=== PATIENT | female | born 1945 | race Caucasian/White ===

== ENCOUNTER 2016-03-16 20:43 | Emergency (ER) | payer OTHER ==
--- NOTE | 2016-03-16 21:58 | ED CLINICAL REPORT ---
Clinical Report - Physicians/Mid Levels [facility] [address] [place] [address] 03/16/2016 20:44 Patient: ESSENCE PATEL Time Seen: 22:09 Mar 16 2016. Arrived- By private vehicle. Historian- patient. HISTORY OF PRESENT ILLNESS Chief Complaint: DYSURIA. This started last night and still present. The symptoms are described as mild. No vaginal discharge. She has had pain with urination and urgency of urination. The patient has had urinary frequency. Not sexually active. Does not use control measures. (Has been attempting to drink water to improve her symptoms, however continues to have urgency and frequency. No back pain no fevers. No pelvic pain. No diarrhea or emesis. History of similar in the past. No recent antibiotics or foreign travel.). REVIEW OF SYSTEMS No nausea, headache, fever or difficulty breathing. All systems otherwise negative, except as recorded above. SOCIAL HISTORY Never smoker. Alcohol use. No drug use. ADDITIONAL NOTES The nursing notes have been reviewed. PHYSICAL EXAM Vital Signs: 03/16/2016 21:29 BP: 164/84. HR: 84. RR: 16. O2 saturation: 98%. Temp: 98.4 F. Appearance: Alert. HEENT: Normal external inspection. Neck: Neck supple. CVS: Heart sounds normal. Respiratory: No respiratory distress. Breath sounds normal. Abdomen: Soft and nontender. No mass. No abdominal tenderness or mass present. Back: Normal external inspection. No CVA tenderness. Skin: Skin warm. Normal skin color. LABS, X-RAYS, AND EKG Laboratory Tests: UA-Culture if indicated: (NINOSKA: 03/16/2016 21:20) ( MsgRcvd 03/16/2016 22:00) Final results Test Result Flag Units (Reference) URINE COLOR YELLOW URINE APPEARANCE CLEAR URINE GLUCOSE NEGATIVE (NEGATIVE) URINE BILIRUBIN NEGATIVE (NEGATIVE) URINE KETONE NEGATIVE (NEGATIVE) URINE SPECIFIC GRAVITY <= 1.005 L (1.010-1.030) URINE PH 6.0 (5.0-8.0) URINE PROTEIN NEGATIVE (NEGATIVE) URINE UROBILINOGEN 0.2 EU/dL (0.2-1.0) URINE NITRITE NEGATIVE (NEGATIVE) URINE BLOOD 3+ (NEGATIVE) URINE LEUK ESTERASE POSITIVE (NEGATIVE) URINE RBC NONE SEEN rbc/hpf (0-1) URINE WBC 50-75 wbc/hpf (0-1) URINE EPITHELIAL CELLS 0-1 EPI/hpf (0-5) URINE BACTERIA FEW (1+) (NONE SEEN) URINE COMMENT CULTURE INDICATED URINE CULTURES ARE SET-UP BASED ON THE FOLLOWING CRITERIA:POSITIVE NITRITEPOSITIVE LEUKOCYTE ESTERASEGREATER THAN 10 WHITE BLOOD CELLSMODERATE (2+) OR GREATER BACTERIA . PROGRESS AND PROCEDURES Course of Care: patient here in the ER, with new onset of symptoms, isolated to the sinusitis, with no signs of pile, afebrile, no CVA tenderness abdomen soft nontender. Patient with no comorbidities, rather healthy for her age. Patient is stable. Physical exam findings are improved. Symptoms better. Patient/family counseled. Disposition: Discharged. CLINICAL IMPRESSION Acute urinary tract infection with cystitis. INSTRUCTIONS Drink plenty of fluids. Prescription Medications: Pyridium 100 mg: take 1 orally every 8 hours. Dispense ten (10). No refill. Substitution is permissible. Macrobid 100 mg: Take 1 capsule orally every 12 hours for 7 days. No refills. Substitution is permissible. Follow-up: Follow up with your doctor in three days. (Electronically signed by Alise Mera P.A.-C 03/16/2016 22:11)
--- NOTE | 2016-03-16 21:58 | ED NURSING NOTES ---
Clinical Report - Nurses [facility] [address] [place] [address] 03/16/2016 20:44 Patient: ESSENCE PATEL TRIAGE 21:29 03/16/16. BP: 164/84. HR: 84. RR: 16. O2 saturation: 98%. Temp: 98.4 F. Pain level now 04/08. --21:30 Alfonzo Mcmanus R.N. Triage time 21:30 Mar 16 2016. Chief Complaint: PAINFUL URINATION, URGENCY and FREQUENCY. --21:32 Sandy Horan Acuity: LEVEL 3. SEPSIS SCREEN: Sepsis Screen: negative. Infection suspected/documented. MARY COMA SCORE: Mary Coma Scale: 15- eyes open spontaneously (4); best verbal response- oriented x 4 (5); best motor response- obeys commands (6). --21:33 Sandy Horan. Weight: 61.2 kg stated. Height/Length: 67 inches Per Patient. BMI: 21.2. --21:31 Sandy Horan. Medications None. --21:31 Sandy oHran. Allergies Penicillin. --21:31 Sandy Horan. Medication/allergy information source: the patient. --21:33 Sandy Horan. History Arrived by private vehicle. Historian: patient. Unaccompanied. This started yesterday. ( Patient reports that she has had UTI in the past and she had some pain and urgency yesterday. She states she hydrated a lot yesterday and thought that may help but has continued to have pain today.). --21:32 Sandy Horan PAST MEDICAL HX: Immunizations: up-to-date. The patient is post-menopausal. SOCIAL HX: Never smoker. Occasional alcohol use. No drug use. No infectious disease exposure. ABUSE ASSESSMENT: No report of abuse. FALL RISK ASSESSMENT: Fall risk assessment completed. No fall risk identified. NUTRITIONAL RISK ASSESSMENT: The nutritional risk assessment revealed no deficiencies. FUNCTIONAL ASSESSMENT: Functional assessment: no impairments noted. LEARNING NEEDS ASSESSMENT: The learning needs assessment revealed no barriers. SKIN INTEGRITY ASSESSMENT: Skin integrity risk assessment completed. No skin integrity risk identified. --21:33 Sandy Horan The patient has had flank pain. --21:33 Sandy Horan. PROBLEMS: no known problems. ADDITIONAL SURGERIES: no known surgeries. Interventions ID band on patient. To treatment room. --21:33 Sandy Horan. PHYSICAL ASSESSMENT Ambulatory to room. Patient gowned. GENERAL / NEURO / PSYCH: Alert. Oriented X 4. Appears in no acute distress. HEENT: Mucous membranes are pink. RESPIRATORY: Respirations not labored. CVS: Normal heart rate and rhythm. GI / : Abdomen soft and nontender. SKIN: Skin is warm and dry. --21:33 Sandy Horan. NURSING PROGRESS NOTES 21:34 03/16/16. Patient gowned. Reassurance given to the patient. Two patient identifiers checked. Call light placed in reach. Side rails up x 1. Bed placed in lowest position. Brakes of bed on. Patient ready for evaluation- chart flagged. --21:34 Sandy Horan Patient ready for evaluation- chart flagged and ED physician notified. --21:34 Aung Sandy Patient ID band checked for patient name and birthdate: patient confirmed. Instructions provided to collect clean catch urine and patient verbalized understanding. Clean catch urine collected with return of yellow-colored clear urine; sample sent to lab for urinalysis and culture. Specimen labeled in the presence of the patient. --21:36 Sandy Horan 22:03/16/2016 Macrobid PO Capsules 100 mg given. Allergies verified and confirmed 5 rights. --22:01 Sandy Horan 22:03/16/2016 Pyridium (Phenazopyridine HCl) PO Tablets 100 mg given. Allergies verified and confirmed 5 rights. --22:01 Sandy Horan. DISPOSITION / DISCHARGE Condition at departure: stable. No learning barriers present. Discharge instructions provided and reviewed with the patient. Reviewed medication(s) side effects, precautions, dosing and course information. Prescription(s) given to the patient. Patient verbalized understanding. Written instructions provided in Faroese. The patient was discharged home and accompanied by spouse. She left the Emergency Department ambulatory and via private vehicle. Spouse driving. --22:10 Schulte, Marline, R.N. 22:09 03/16/16. BP: deferred. HR: deferred. RR: 15 (regular, unlabored and normal). O2 saturation: deferred. Temp: deferred. Lott-Ly pain scale: 04/08. --22:10 Marline Schulte R.N. Locked/Released at 03/16/2016 22:10 by Marline Schulte R.N.
--- NOTE | 2016-03-16 21:58 | ED ORDER SUMMARY ---
..... Patient: ESSENCE PATEL OrderSheet [facility] VisitID: [id number] [place] [address] 71y, F Registration Date/Time: 03/16/2016 ORDER SHEET Weight: 61.2 kg (stated) Allergies: Penicillin GENERAL ORDERS: UA-Culture if indicated Urgent (21:35 03/16/2016 HSoule per protocol) (Ack 21:36 NHouse ER Tech1) (22:01 HSoule) MEDICATION ORDERS: Macrobid PO 100 mg (NOW) (21:57 03/16/2016 EKoroleva P.A.-C) (22:01 HSoule) Pyridium PO 100 mg (NOW) (21:58 03/16/2016 EKoroleva P.A.-C) (22:01 HSoule) IV FLUIDS: ORDER SHEET NOTES: [Electronically signed by Marline Schulte R.N. (22:10 03/16/2016)] [Electronically signed by Alise Mera P.A.-C (22:11 03/16/2016)] [Electronically locked/signed by Marline Schulte R.N. (22:10 03/16/2016)]
--- NOTE | 2016-03-16 21:58 | ED ORDER SUMMARY ---
..... Patient: ESSENCE PATEL OrderSheet [facility] VisitID: [id number] [place] [address] 71y, F Registration Date/Time: 03/16/2016 ORDER SHEET Weight: 61.2 kg (stated) Allergies: Penicillin GENERAL ORDERS: UA-Culture if indicated Urgent (21:35 03/16/2016 HSoule per protocol) (Ack 21:36 NHouse ER Tech1) (22:01 HSoule) MEDICATION ORDERS: Macrobid PO 100 mg (NOW) (21:57 03/16/2016 EKoroleva P.A.-C) (22:01 HSoule) Pyridium PO 100 mg (NOW) (21:58 03/16/2016 EKoroleva P.A.-C) (22:01 HSoule) IV FLUIDS: ORDER SHEET NOTES: [Electronically signed by Marline Schulte R.N. (22:10 03/16/2016)] [Electronically signed by Alise Mera P.A.-C (22:11 03/16/2016)] [Electronically locked/signed by Marline Schulte R.N. (22:10 03/16/2016)]
--- NOTE | 2016-03-16 21:58 | ED CLINICAL REPORT ---
Clinical Report - Physicians/Mid Levels [facility] [address] [place] [address] 03/16/2016 20:44 Patient: ESSENCE PATEL Time Seen: 22:09 Mar 16 2016. Arrived- By private vehicle. Historian- patient. HISTORY OF PRESENT ILLNESS Chief Complaint: DYSURIA. This started last night and still present. The symptoms are described as mild. No vaginal discharge. She has had pain with urination and urgency of urination. The patient has had urinary frequency. Not sexually active. Does not use control measures. (Has been attempting to drink water to improve her symptoms, however continues to have urgency and frequency. No back pain no fevers. No pelvic pain. No diarrhea or emesis. History of similar in the past. No recent antibiotics or foreign travel.). REVIEW OF SYSTEMS No nausea, headache, fever or difficulty breathing. All systems otherwise negative, except as recorded above. SOCIAL HISTORY Never smoker. Alcohol use. No drug use. ADDITIONAL NOTES The nursing notes have been reviewed. PHYSICAL EXAM Vital Signs: 03/16/2016 21:29 BP: 164/84. HR: 84. RR: 16. O2 saturation: 98%. Temp: 98.4 F. Appearance: Alert. HEENT: Normal external inspection. Neck: Neck supple. CVS: Heart sounds normal. Respiratory: No respiratory distress. Breath sounds normal. Abdomen: Soft and nontender. No mass. No abdominal tenderness or mass present. Back: Normal external inspection. No CVA tenderness. Skin: Skin warm. Normal skin color. LABS, X-RAYS, AND EKG Laboratory Tests: UA-Culture if indicated: (NINOSKA: 03/16/2016 21:20) ( MsgRcvd 03/16/2016 22:00) Final results Test Result Flag Units (Reference) URINE COLOR YELLOW URINE APPEARANCE CLEAR URINE GLUCOSE NEGATIVE (NEGATIVE) URINE BILIRUBIN NEGATIVE (NEGATIVE) URINE KETONE NEGATIVE (NEGATIVE) URINE SPECIFIC GRAVITY <= 1.005 L (1.010-1.030) URINE PH 6.0 (5.0-8.0) URINE PROTEIN NEGATIVE (NEGATIVE) URINE UROBILINOGEN 0.2 EU/dL (0.2-1.0) URINE NITRITE NEGATIVE (NEGATIVE) URINE BLOOD 3+ (NEGATIVE) URINE LEUK ESTERASE POSITIVE (NEGATIVE) URINE RBC NONE SEEN rbc/hpf (0-1) URINE WBC 50-75 wbc/hpf (0-1) URINE EPITHELIAL CELLS 0-1 EPI/hpf (0-5) URINE BACTERIA FEW (1+) (NONE SEEN) URINE COMMENT CULTURE INDICATED URINE CULTURES ARE SET-UP BASED ON THE FOLLOWING CRITERIA:POSITIVE NITRITEPOSITIVE LEUKOCYTE ESTERASEGREATER THAN 10 WHITE BLOOD CELLSMODERATE (2+) OR GREATER BACTERIA . PROGRESS AND PROCEDURES Course of Care: patient here in the ER, with new onset of symptoms, isolated to the sinusitis, with no signs of pile, afebrile, no CVA tenderness abdomen soft nontender. Patient with no comorbidities, rather healthy for her age. Patient is stable. Physical exam findings are improved. Symptoms better. Patient/family counseled. Disposition: Discharged. CLINICAL IMPRESSION Acute urinary tract infection with cystitis. INSTRUCTIONS Drink plenty of fluids. Prescription Medications: Pyridium 100 mg: take 1 orally every 8 hours. Dispense ten (10). No refill. Substitution is permissible. Macrobid 100 mg: Take 1 capsule orally every 12 hours for 7 days. No refills. Substitution is permissible. Follow-up: Follow up with your doctor in three days. (Electronically signed by Alise Mera P.A.-C 03/16/2016 22:11)
--- NOTE | 2016-03-16 22:11 | ED DISCHARGE INSTRUCTIONS ---
Patient: ESSENCE PATEL General Instructions [facility] VisitID: [id number] [place] [address] 71y, F Registration Date/Time: 03/16/2016 Acute urinary tract infection with cystitis. INSTRUCTIONS Drink plenty of fluids. Prescription Medications: Pyridium 100 mg: take 1 orally every 8 hours. Dispense ten (10). No refill. Substitution is permissible. Macrobid 100 mg: Take 1 capsule orally every 12 hours for 7 days. No refills. Substitution is permissible. Follow-up: Follow up with your doctor in three days. ADDITIONAL INFORMATION Bladder Infection,Female (Adult) A bladder infection ("cystitis" or "UTI") usually causes a constant urge to urinate and a burning when passing urine. Urine may be cloudy, smelly or dark. There may be pain in the lower abdomen. A bladder infection occurs when bacteria from the vaginal area enter the bladder opening (urethra). This can occur from sexual intercourse, wearing tight clothing, dehydration and other factors. Home Care: Drink lots of fluids (at least 6-8 glasses a day, unless you must restrict fluids for other medical reasons). This will force the medicine into your urinary system and flush the bacteria out of your body. Avoid sexual intercourse until your symptoms are gone. Avoid caffeine, alcohol and spicy foods. These can irritate the bladder. A bladder infection is treated with antibiotics. You may also be given Pyridium (generic = phenazopyridine) to reduce the burning sensation. This medicine will cause your urine to become a bright orange color. The orange urine may stain clothing. You may wear a pad or panty-liner to protect clothing. Preventing Future Infections: Always wipe from front to back after a bowel movement. Keep the genital area clean and dry. Drink plenty of fluids each day to avoid dehydration. Both sexual partners should wash before intercourse. Urinate right after intercourse to flush out the bladder. Wear cotton underwear and cotton-lined panty hose; avoid tight-fitting pants. If you are on control pills and are having frequent bladder infections, discuss with your doctor. Follow Up: Return to this facility or see your doctor if ALL symptoms are not gone after three days of treatment. Get Prompt Medical Attention if any of the following occur: Fever of 100.4F (38C) or higher, or as directed by your healthcare provider No improvement by the third day of treatment Increasing back or abdominal pain Repeated vomiting; unable to keep medicine down Weakness, dizziness or fainting Vaginal discharge Pain, redness or swelling in the labia (outer vaginal area) Phenazopyridine Hydrochloride Oral tablet What is this medicine? PHENAZOPYRIDINE (fen az oh PEER i makenzie) is a pain reliever. It is used to stop the pain, burning, or discomfort caused by infection or irritation of the urinary tract. This medicine is not an antibiotic. It will not cure a urinary tract infection. How should I use this medicine? Take this medicine by mouth with a glass of water. Follow the directions on the prescription label. Take after meals. Take your doses at regular intervals. Do not take your medicine more often than directed. Do not skip doses or stop your medicine early even if you feel better. Do not stop taking except on your doctor's advice. Talk to your engineering professionals regarding the use of this medicine in children. Special care may be needed. What side effects may I notice from receiving this medicine? Side effects that you should report to your doctor or health healthcare corporate account director as soon as possible: allergic reactions like skin rash, itching or hives, swelling of the face, lips, or tongue blue or purple color of the skin difficulty breathing fever less urine unusual bleeding, bruising unusual tired, weak vomiting yellowing of the eyes or skin Side effects that usually do not require medical attention (report to your doctor or health healthcare corporate account director if they continue or are bothersome): dark urine headache stomach upset What may interact with this medicine? Interactions are not expected. What if I miss a dose? If you miss a dose, take it as soon as you can. If it is almost time for your next dose, take only that dose. Do not take double or extra doses. Where should I keep my medicine? Keep out of the reach of children. Store at room temperature between 15 and 30 degrees C (59 and 86 degrees F). Protect from light and moisture. Throw away any unused medicine after the expiration date. What should I tell my health care provider before I take this medicine? They need to know if you have any of these conditions: [id number] dehydrogenase (G6PD) deficiency kidney disease an unusual or allergic reaction to phenazopyridine, other medicines, foods, dyes, or preservatives or trying to get breast-feeding What should I watch for while using this medicine? Tell your doctor or health healthcare corporate account director if your symptoms do not improve or if they get worse. This medicine colors body fluids red. This effect is harmless and will go away after you are done taking the medicine. It will change urine to an dark orange or red color. The red color may stain clothing. Soft contact lenses may become permanently stained. It is best not to wear soft contact lenses while taking this medicine. If you are diabetic you may get a false positive result for sugar in your urine. Talk to your health care provider. You have been given the following additional information: Bladder Infection, Female (Adult) Phenazopyridine Hydrochloride Oral tablet (Electronically signed by Alise Mera P.A.-C 03/16/2016 22:11)
--- NOTE | 2016-03-16 22:11 | ED MED RECONCILIATION SUMMARY ---
Patient: ESSENCE PATEL Medication Reconciliation Report [facility] VisitID: [id number] [address] [place] [address] 71y, F Registration Date/Time: 03/16/2016 Weight: 61.2 kg Height/Length: 67 in. BMI: 21.2 ALLERGIES: Penicillin The patient's Home Medications are listed below: NONE. The source(s) of the original Home Medication information: patient The following Medications were given to the patient in the Emergency Department: Macrobid [PO] PO 100 mg, administered: 03/16/2016 10:01:00 PM Pyridium [PO] PO 100 mg, administered: 03/16/2016 10:01:00 PM The following Medications were prescribed to the patient: Pyridium 100 mg: take 1 orally every 8 hours. Dispense ten (10). No refill. Substitution is permissible. -- Alise Mera, P.A.-C Macrobid 100 mg: Take 1 capsule orally every 12 hours for 7 days. No refills. Substitution is permissible. -- Alise Mera, P.A.-C
--- NOTE | 2016-03-16 22:11 | ED DISCHARGE INSTRUCTIONS ---
Patient: ESSENCE PATEL General Instructions [facility] VisitID: [id number] [place] [address] 71y, F Registration Date/Time: 03/16/2016 Acute urinary tract infection with cystitis. INSTRUCTIONS Drink plenty of fluids. Prescription Medications: Pyridium 100 mg: take 1 orally every 8 hours. Dispense ten (10). No refill. Substitution is permissible. Macrobid 100 mg: Take 1 capsule orally every 12 hours for 7 days. No refills. Substitution is permissible. Follow-up: Follow up with your doctor in three days. ADDITIONAL INFORMATION Bladder Infection,Female (Adult) A bladder infection ("cystitis" or "UTI") usually causes a constant urge to urinate and a burning when passing urine. Urine may be cloudy, smelly or dark. There may be pain in the lower abdomen. A bladder infection occurs when bacteria from the vaginal area enter the bladder opening (urethra). This can occur from sexual intercourse, wearing tight clothing, dehydration and other factors. Home Care: Drink lots of fluids (at least 6-8 glasses a day, unless you must restrict fluids for other medical reasons). This will force the medicine into your urinary system and flush the bacteria out of your body. Avoid sexual intercourse until your symptoms are gone. Avoid caffeine, alcohol and spicy foods. These can irritate the bladder. A bladder infection is treated with antibiotics. You may also be given Pyridium (generic = phenazopyridine) to reduce the burning sensation. This medicine will cause your urine to become a bright orange color. The orange urine may stain clothing. You may wear a pad or panty-liner to protect clothing. Preventing Future Infections: Always wipe from front to back after a bowel movement. Keep the genital area clean and dry. Drink plenty of fluids each day to avoid dehydration. Both sexual partners should wash before intercourse. Urinate right after intercourse to flush out the bladder. Wear cotton underwear and cotton-lined panty hose; avoid tight-fitting pants. If you are on control pills and are having frequent bladder infections, discuss with your doctor. Follow Up: Return to this facility or see your doctor if ALL symptoms are not gone after three days of treatment. Get Prompt Medical Attention if any of the following occur: Fever of 100.4F (38C) or higher, or as directed by your healthcare provider No improvement by the third day of treatment Increasing back or abdominal pain Repeated vomiting; unable to keep medicine down Weakness, dizziness or fainting Vaginal discharge Pain, redness or swelling in the labia (outer vaginal area) Phenazopyridine Hydrochloride Oral tablet What is this medicine? PHENAZOPYRIDINE (fen az oh PEER i makenzie) is a pain reliever. It is used to stop the pain, burning, or discomfort caused by infection or irritation of the urinary tract. This medicine is not an antibiotic. It will not cure a urinary tract infection. How should I use this medicine? Take this medicine by mouth with a glass of water. Follow the directions on the prescription label. Take after meals. Take your doses at regular intervals. Do not take your medicine more often than directed. Do not skip doses or stop your medicine early even if you feel better. Do not stop taking except on your doctor's advice. Talk to your nursing unit clerk regarding the use of this medicine in children. Special care may be needed. What side effects may I notice from receiving this medicine? Side effects that you should report to your doctor or health pet care worker as soon as possible: allergic reactions like skin rash, itching or hives, swelling of the face, lips, or tongue blue or purple color of the skin difficulty breathing fever less urine unusual bleeding, bruising unusual tired, weak vomiting yellowing of the eyes or skin Side effects that usually do not require medical attention (report to your doctor or health pet care worker if they continue or are bothersome): dark urine headache stomach upset What may interact with this medicine? Interactions are not expected. What if I miss a dose? If you miss a dose, take it as soon as you can. If it is almost time for your next dose, take only that dose. Do not take double or extra doses. Where should I keep my medicine? Keep out of the reach of children. Store at room temperature between 15 and 30 degrees C (59 and 86 degrees F). Protect from light and moisture. Throw away any unused medicine after the expiration date. What should I tell my health care provider before I take this medicine? They need to know if you have any of these conditions: joanrko-0-penqktdpu dehydrogenase (G6PD) deficiency kidney disease an unusual or allergic reaction to phenazopyridine, other medicines, foods, dyes, or preservatives or trying to get breast-feeding What should I watch for while using this medicine? Tell your doctor or health pet care worker if your symptoms do not improve or if they get worse. This medicine colors body fluids red. This effect is harmless and will go away after you are done taking the medicine. It will change urine to an dark orange or red color. The red color may stain clothing. Soft contact lenses may become permanently stained. It is best not to wear soft contact lenses while taking this medicine. If you are diabetic you may get a false positive result for sugar in your urine. Talk to your health care provider. You have been given the following additional information: Bladder Infection, Female (Adult) Phenazopyridine Hydrochloride Oral tablet (Electronically signed by Alise Mera P.A.-C 03/16/2016 22:11)
--- NOTE | 2016-03-16 22:11 | ED MAR SUMMARY ---
..... Medication Administration Record [facility] [address] [place] [address] Patient: ESSENCE PATEL Visit ID: [id number] 71y, F Weight: 61.2 kg Height/Length: 67 in BMI: 21.2 ALLERGIES: Penicillin Given 22:03/16/2016 Sandy Horan, Medication Administered: MACROBID [PO], Dose: 100 mg Capsules PO. Medication Ordered: Macrobid PO 100 mg (NOW). Given 22:03/16/2016 Sandy Horan, Medication Administered: PYRIDIUM [PO] (PHENAZOPYRIDINE HCL), Dose: 100 mg Tablets PO. Medication Ordered: Pyridium PO 100 mg (NOW).
--- NOTE | 2016-03-16 22:11 | ED MED RECONCILIATION SUMMARY ---
Patient: ESSENCE PATEL Medication Reconciliation Report [facility] VisitID: [id number] [address] [place] [address] 71y, F Registration Date/Time: 03/16/2016 Weight: 61.2 kg Height/Length: 67 in. BMI: 21.2 ALLERGIES: Penicillin The patient's Home Medications are listed below: NONE. The source(s) of the original Home Medication information: patient The following Medications were given to the patient in the Emergency Department: Macrobid [PO] PO 100 mg, administered: 03/16/2016 10:01:00 PM Pyridium [PO] PO 100 mg, administered: 03/16/2016 10:01:00 PM The following Medications were prescribed to the patient: Pyridium 100 mg: take 1 orally every 8 hours. Dispense ten (10). No refill. Substitution is permissible. -- Alise Mera, P.A.-C Macrobid 100 mg: Take 1 capsule orally every 12 hours for 7 days. No refills. Substitution is permissible. -- Alise Mera, P.A.-C
--- NOTE | 2016-03-16 22:11 | ED MAR SUMMARY ---
..... Medication Administration Record [facility] [address] [place] [address] Patient: ESSENCE PATEL Visit ID: [id number] 71y, F Weight: 61.2 kg Height/Length: 67 in BMI: 21.2 ALLERGIES: Penicillin Given 22:03/16/2016 Sandy Horan, Medication Administered: MACROBID [PO], Dose: 100 mg Capsules PO. Medication Ordered: Macrobid PO 100 mg (NOW). Given 22:03/16/2016 Sandy Horan, Medication Administered: PYRIDIUM [PO] (PHENAZOPYRIDINE HCL), Dose: 100 mg Tablets PO. Medication Ordered: Pyridium PO 100 mg (NOW).
== END 2016-03-16 22:10 | disposition home or self-care (01) ==
LOC: ED SRH 20:43
DX: N30.00 Acute cystitis without hematuria (principal); Z88.0 Allergy status to penicillin
CPT/HCPCS: 90004; 90148; 90469

== ENCOUNTER 2016-06-20 21:08 | Emergency (ER) | payer OTHER ==
--- NOTE | 2016-06-20 23:16 | ED CLINICAL REPORT ---
Clinical Report - Physicians/Mid Levels [facility] [address] [place] [address] 06/20/2016 21:08 Patient: ESSENCE PATEL Time Seen: 22:42 Apr 2016. Arrived- By private vehicle. Historian- patient. CPT: ER phys charges level 3 plus (#[id number]). HISTORY OF PRESENT ILLNESS Chief Complaint: Injury to the right hand. The injury happened just prior to arrival. Occurred at home. The patient sustained a laceration from broken glass. Patient is experiencing moderate pain. No other injury. REVIEW OF SYSTEMS The patient sustained a laceration. No swelling, tingling, numbness, weakness or foreign body. All systems otherwise negative, except as recorded above. PAST HISTORY See nurses notes. Tetanus immunization status is unknown. Additional Surgeries: no known surgeries. Medications: None. Allergies: Penicillins. SOCIAL HISTORY Never smoker. No alcohol use or drug use. ADDITIONAL NOTES The nursing notes have been reviewed. PHYSICAL EXAM Vital Signs: 06/20/2016 22:50 BP: 118/76. HR: 84. RR: 16. O2 saturation: 97%. Temp: 98.2 F. Pain level now: 2/10. Appearance: Alert. Patient in mild distress. Skin: Skin warm and dry. Extremities: Right middle finger: moderate tenderness and subcutaneous 3.0 cm laceration of the dorsal aspect and PIP joint- SEE LACERATION PROCEDURE NOTE. Neurovascular intact distally. No swelling. No limitation in movement. No subungual hematoma or amputation present. No wrist injury. Extremities otherwise negative. Neuro, Vascular and Tendons: Vascular status intact. Motor intact. Tendon function intact. Neuro: Oriented X 3. No motor deficit. No sensory deficit. PROGRESS AND PROCEDURES Laceration Repair: Location: right hand. Length: 3.0cm. Complexity: simple (local anesthesia used and sutured). Wound depth/shape- subcutaneous and linear. Wound is clean. Distal neuro/vascular/tendon status normal. Local anesthesia provided using 1% lidocaine with bicarb. Prepped with Hibiclens. Wound explored, cleansed, irrigated and examined to the base in bloodless field extensively with normal saline. Closure of skin: interrupted 5-0 (5 sutures). Post-procedure: she is stable and there are no complications. Bleeding is controlled and neuro-vascular status is intact distal to the wound. Dressing applied. Tetanus immunization given. Splint Application: Aluminum-foam splint applied to right middle finger. Splint applied by tech with direct supervision by me. Reassessed extremity following splint application. Neurovascular intact. Follow-up recommended within 10 days. Patient/family counseled. Disposition: Discharged. Condition: stable and improved. CLINICAL IMPRESSION Single deep laceration to the right hand.No foreign body present. INSTRUCTIONS Wear aluminum splint until released. Protect wound and keep wound area clean. Change dressing twice daily. Keep wounds dry. You may wash wounds briefly, then dry. Apply neosporin twice daily. Sutures/lula should be removed in ten days. Limit use of your right hand until released. Warnings: TETANUS: You were given a tetanus shot during your visit. Make a note for future reference. OTC Medications: Acetaminophen (available over the counter): take according to label instructions. Follow-up: Follow up with your doctor in ten days. Call for an appointment. Understanding of the discharge instructions verbalized by patient. (Electronically signed by Timothy Leiva MD 06/28/2016 1:24)
--- NOTE | 2016-06-20 23:16 | ED NURSING NOTES ---
Clinical Report - Nurses [facility] [address] [place] [address] 06/20/2016 21:08 Patient: ESSENCE PATEL TRIAGE Triage time 22:50. Chief Complaint: INJURY TO RIGHT HAND. --22:52 TonyaB, R.N. 22:50 06/20/16. BP: 118/76. HR: 84. RR: 16. O2 saturation: 97%. Temp: 98.2 F. Pain level now: 04/08. --22:52 TonyaB, R.N. Acuity: LEVEL 4. --22:52 TonyaB, R.N. Weight: 62.5 kg. Height/Length: 67 inches. BMI: 21.6. --22:52 TonyaB, R.N. Medications None. --22:51 TonyaB, R.N. Allergies Penicillins. --22:51 TonyaB, R.N. History Arrived by private vehicle. Historian: patient. ( pt was washing a ceramic bowl and cut her knuckle on her right middle finger). This occurred just prior to arrival. She sustained a laceration. 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 SOCIAL HX: Never smoker. No alcohol use or drug use. No infectious disease exposure. SELF HARM ASSESSMENT: A self harm assessment was performed. The patient answered "no" to the question "Have you recently felt down, depressed, or hopeless?", "Have you noticed less interest or pleasure in doing things?", "Do you have thoughts of harming or killing yourself?", "Are you here because you tried to hurt yourself?", "Have you ever tried to hurt yourself before today?", "Have you recently had thoughts about harming or killing others?" and "Do you have any dangerous items in your possession?". FALL RISK ASSESSMENT: Fall risk assessment completed. No fall risk identified. NUTRITIONAL RISK ASSESSMENT: The nutritional risk assessment revealed no deficiencies. FUNCTIONAL ASSESSMENT: Functional assessment: no impairments noted. LEARNING NEEDS ASSESSMENT: The learning needs assessment revealed no barriers. ABUSE ASSESSMENT: Abuse assessment: The patient was asked "Do you feel safe in your home?". SKIN INTEGRITY ASSESSMENT: Skin integrity risk assessment completed. No skin integrity risk identified. --22:52 Lety Deng PROBLEMS: UTI - Urinary Tract Infection. --22:51 Khadar Deng. ADDITIONAL SURGERIES: no known surgeries. Interventions ID band on patient. To treatment room. --22:52 Lety Deng PHYSICAL ASSESSMENT Ambulatory to room. GENERAL / NEURO / PSYCH: Oriented X 4. Alert. Appears in no acute distress. EXTREMITIES: Capillary refill is less than 2 seconds in the extremities. Extremity pulses are within normal limits. Extremities exhibit normal ROM. Neuro-vascular status intact to the extremity. Right middle finger: subcutaneous laceration. SKIN: Skin intact. Skin is warm and dry. --22:53 Khadar Deng. NURSING PROGRESS NOTES Wound cleansed with water and Hibiclens. Patient identifiers checked. Call light placed in reach. Side rails up x 1. Bed placed in lowest position. Brakes of bed on. --22:53 Lety Deng 23:22 06/20/2016 TDAP IM 0.5 mL given. (Lot#: [id number], expiration date: 12/04/2017, Professor Of Practice: [employer]). Given in the left deltoid. Allergies verified and confirmed 5 rights. Vaccine information statement provided to the patient. --23:23 Khadar Deng. Applied dressing consisting of 4x4 gauze. Secured with tape. Finger splint applied to right middle finger by nurse. Distal pulses intact, sensation intact and motor within normal limits. --23:46 Khadar Deng. DISPOSITION / DISCHARGE Departure time: 23:47. --23:47 Khadar Deng. 23:46 06/20/16. BP: 121/72. HR: 74. RR: 16. O2 saturation: 100%. Temp: deferred. Pain level now: 0/10. --23:47 Khadar Deng. Condition at departure: improved. No learning barriers present. Discharge instructions provided and reviewed with the patient. Reviewed wound care instructions. Follow up contact number. Patient verbalized understanding. Written instructions provided in [place]. No warning instructions, medication instructions, referrals given to the patient, diet instructions or activity restrictions. No note given or stop smoking instructions. The patient was discharged by the physician. She was discharged home. She left the Emergency Department ambulatory and via private vehicle. Patient driving. FALL RISK ASSESSMENT: Fall risk assessment completed. No fall risk identified. --23:47 Lety Deng Locked/Released at 06/20/2016 23:47 by Lety Deng
--- NOTE | 2016-06-20 23:16 | ED NURSING NOTES ---
Clinical Report - Nurses [facility] [address] [place] [address] 06/20/2016 21:08 Patient: ESSENCE PATEL TRIAGE Triage time 22:50. Chief Complaint: INJURY TO RIGHT HAND. --22:52 TonyaB, R.N. 22:50 06/20/16. BP: 118/76. HR: 84. RR: 16. O2 saturation: 97%. Temp: 98.2 F. Pain level now: 04/08. --22:52 TonyaB, R.N. Acuity: LEVEL 4. --22:52 TonyaB, R.N. Weight: 62.5 kg. Height/Length: 67 inches. BMI: 21.6. --22:52 TonyaB, R.N. Medications None. --22:51 TonyaB, R.N. Allergies Penicillins. --22:51 TonyaB, R.N. History Arrived by private vehicle. Historian: patient. ( pt was washing a ceramic bowl and cut her knuckle on her right middle finger). This occurred just prior to arrival. She sustained a laceration. 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 SOCIAL HX: Never smoker. No alcohol use or drug use. No infectious disease exposure. SELF HARM ASSESSMENT: A self harm assessment was performed. The patient answered "no" to the question "Have you recently felt down, depressed, or hopeless?", "Have you noticed less interest or pleasure in doing things?", "Do you have thoughts of harming or killing yourself?", "Are you here because you tried to hurt yourself?", "Have you ever tried to hurt yourself before today?", "Have you recently had thoughts about harming or killing others?" and "Do you have any dangerous items in your possession?". FALL RISK ASSESSMENT: Fall risk assessment completed. No fall risk identified. NUTRITIONAL RISK ASSESSMENT: The nutritional risk assessment revealed no deficiencies. FUNCTIONAL ASSESSMENT: Functional assessment: no impairments noted. LEARNING NEEDS ASSESSMENT: The learning needs assessment revealed no barriers. ABUSE ASSESSMENT: Abuse assessment: The patient was asked "Do you feel safe in your home?". SKIN INTEGRITY ASSESSMENT: Skin integrity risk assessment completed. No skin integrity risk identified. --22:52 Lety Deng PROBLEMS: UTI - Urinary Tract Infection. --22:51 Khadar Deng. ADDITIONAL SURGERIES: no known surgeries. Interventions ID band on patient. To treatment room. --22:52 Lety Deng PHYSICAL ASSESSMENT Ambulatory to room. GENERAL / NEURO / PSYCH: Oriented X 4. Alert. Appears in no acute distress. EXTREMITIES: Capillary refill is less than 2 seconds in the extremities. Extremity pulses are within normal limits. Extremities exhibit normal ROM. Neuro-vascular status intact to the extremity. Right middle finger: subcutaneous laceration. SKIN: Skin intact. Skin is warm and dry. --22:53 Khadar Deng. NURSING PROGRESS NOTES Wound cleansed with water and Hibiclens. Patient identifiers checked. Call light placed in reach. Side rails up x 1. Bed placed in lowest position. Brakes of bed on. --22:53 Lety Deng 23:22 06/20/2016 TDAP IM 0.5 mL given. (Lot#: [id number], expiration date: 12/04/2017, Curriculum Manager: [employer]ur). Given in the left deltoid. Allergies verified and confirmed 5 rights. Vaccine information statement provided to the patient. --23:23 Khadar Deng. Applied dressing consisting of 4x4 gauze. Secured with tape. Finger splint applied to right middle finger by nurse. Distal pulses intact, sensation intact and motor within normal limits. --23:46 Khadar Deng. DISPOSITION / DISCHARGE Departure time: 23:47. --23:47 Khadar Deng. 23:46 06/20/16. BP: 121/72. HR: 74. RR: 16. O2 saturation: 100%. Temp: deferred. Pain level now: 0/10. --23:47 Khadar Deng. Condition at departure: improved. No learning barriers present. Discharge instructions provided and reviewed with the patient. Reviewed wound care instructions. Follow up contact number. Patient verbalized understanding. Written instructions provided in [place]ian. No warning instructions, medication instructions, referrals given to the patient, diet instructions or activity restrictions. No note given or stop smoking instructions. The patient was discharged by the physician. She was discharged home. She left the Emergency Department ambulatory and via private vehicle. Patient driving. FALL RISK ASSESSMENT: Fall risk assessment completed. No fall risk identified. --23:47 Lety Deng Locked/Released at 06/20/2016 23:47 by Lety Deng
--- NOTE | 2016-06-20 23:16 | ED ORDER SUMMARY ---
..... Patient: ESSENCE PATEL OrderSheet [facility] VisitID: [id number] [place] [address] 71y, F Registration Date/Time: 06/20/2016 ORDER SHEET Weight: 62.5 kg Allergies: Penicillins GENERAL ORDERS: Dress Wounds (23:06/20/2016 Deepti ANDERSON) (23:23 TBowedvin R.N.) Splint (UE) (Right) (Metal / foam) (23:14 06/20/2016 Deepti ANDERSON) (23:23 TBowedvin R.N.) MEDICATION ORDERS: Tdap IM 0.5 mL (NOW, per protocol) (23:06/20/2016 Deepti ANDERSON) (23:22 TBowedvin R.N.) IV FLUIDS: ORDER SHEET NOTES: [Electronically signed by Viktoria Seaman R.N. (23:47 06/20/2016)] [Electronically signed by Timothy Leiva MD (:24 06/28/2016)] [Electronically locked/signed by Viktoria Seaman R.N. (23:47 06/20/2016)]
--- NOTE | 2016-06-20 23:16 | ED CLINICAL REPORT ---
Clinical Report - Physicians/Mid Levels [facility] [address] [place] [address] 06/20/2016 21:08 Patient: ESSENCE PATEL Time Seen: 22:42 Apr 2016. Arrived- By private vehicle. Historian- patient. CPT: ER phys charges level 3 plus (#[id number]). HISTORY OF PRESENT ILLNESS Chief Complaint: Injury to the right hand. The injury happened just prior to arrival. Occurred at home. The patient sustained a laceration from broken glass. Patient is experiencing moderate pain. No other injury. REVIEW OF SYSTEMS The patient sustained a laceration. No swelling, tingling, numbness, weakness or foreign body. All systems otherwise negative, except as recorded above. PAST HISTORY See nurses notes. Tetanus immunization status is unknown. Additional Surgeries: no known surgeries. Medications: None. Allergies: Penicillins. SOCIAL HISTORY Never smoker. No alcohol use or drug use. ADDITIONAL NOTES The nursing notes have been reviewed. PHYSICAL EXAM Vital Signs: 06/20/2016 22:50 BP: 118/76. HR: 84. RR: 16. O2 saturation: 97%. Temp: 98.2 F. Pain level now: 2/10. Appearance: Alert. Patient in mild distress. Skin: Skin warm and dry. Extremities: Right middle finger: moderate tenderness and subcutaneous 3.0 cm laceration of the dorsal aspect and PIP joint- SEE LACERATION PROCEDURE NOTE. Neurovascular intact distally. No swelling. No limitation in movement. No subungual hematoma or amputation present. No wrist injury. Extremities otherwise negative. Neuro, Vascular and Tendons: Vascular status intact. Motor intact. Tendon function intact. Neuro: Oriented X 3. No motor deficit. No sensory deficit. PROGRESS AND PROCEDURES Laceration Repair: Location: right hand. Length: 3.0cm. Complexity: simple (local anesthesia used and sutured). Wound depth/shape- subcutaneous and linear. Wound is clean. Distal neuro/vascular/tendon status normal. Local anesthesia provided using 1% lidocaine with bicarb. Prepped with Hibiclens. Wound explored, cleansed, irrigated and examined to the base in bloodless field extensively with normal saline. Closure of skin: interrupted 5-0 (5 sutures). Post-procedure: she is stable and there are no complications. Bleeding is controlled and neuro-vascular status is intact distal to the wound. Dressing applied. Tetanus immunization given. Splint Application: Aluminum-foam splint applied to right middle finger. Splint applied by tech with direct supervision by me. Reassessed extremity following splint application. Neurovascular intact. Follow-up recommended within 10 days. Patient/family counseled. Disposition: Discharged. Condition: stable and improved. CLINICAL IMPRESSION Single deep laceration to the right hand.No foreign body present. INSTRUCTIONS Wear aluminum splint until released. Protect wound and keep wound area clean. Change dressing twice daily. Keep wounds dry. You may wash wounds briefly, then dry. Apply neosporin twice daily. Sutures/lula should be removed in ten days. Limit use of your right hand until released. Warnings: TETANUS: You were given a tetanus shot during your visit. Make a note for future reference. OTC Medications: Acetaminophen (available over the counter): take according to label instructions. Follow-up: Follow up with your doctor in ten days. Call for an appointment. Understanding of the discharge instructions verbalized by patient. (Electronically signed by Timothy Leiva MD 06/28/2016 1:24)
--- NOTE | 2016-06-20 23:16 | ED ORDER SUMMARY ---
..... Patient: ESSENCE PATEL OrderSheet [facility] VisitID: [id number] [place] [address] 71y, F Registration Date/Time: 06/20/2016 ORDER SHEET Weight: 62.5 kg Allergies: Penicillins GENERAL ORDERS: Dress Wounds (23:06/20/2016 Deepti ANDERSON) (23:23 TBowedvin R.N.) Splint (UE) (Right) (Metal / foam) (23:14 06/20/2016 Deepti ANDERSON) (23:23 TBowedvin R.N.) MEDICATION ORDERS: Tdap IM 0.5 mL (NOW, per protocol) (23:06/20/2016 Deepti ANDERSON) (23:22 TBowedvin R.N.) IV FLUIDS: ORDER SHEET NOTES: [Electronically signed by Viktoria Seaman R.N. (23:47 06/20/2016)] [Electronically signed by Timothy Leiva MD (:24 06/28/2016)] [Electronically locked/signed by Viktoria Seaman R.N. (23:47 06/20/2016)]
--- NOTE | 2016-06-28 01:24 | ED DISCHARGE INSTRUCTIONS ---
Patient: ESSENCE PATEL General Instructions [facility] VisitID: [id number] [place] [address] 71y, F Registration Date/Time: 06/20/2016 Single deep laceration to the right hand.No foreign body present. INSTRUCTIONS Wear aluminum splint until released. Protect wound and keep wound area clean. Change dressing twice daily. Keep wounds dry. You may wash wounds briefly, then dry. Apply neosporin twice daily. Sutures/norma should be removed in ten days. Limit use of your right hand until released. Warnings: TETANUS: You were given a tetanus shot during your visit. Make a note for future reference. OTC Medications: Acetaminophen (available over the counter): take according to label instructions. Follow-up: Follow up with your doctor in ten days. Call for an appointment. Understanding of the discharge instructions verbalized by patient. ADDITIONAL INFORMATION Laceration (All Closures) Alaceration is a cut through the skin. This will usually require stitches (sutures) or norma if it is deep. Minor cuts may be treated with a surgical tape closure orskin glue. Home care The following guidelines will help you care for your laceration at home: Extremity, face, or trunk wounds Keep the wound clean and dry. If a bandage was applied and it becomes wet or dirty, replace it. Otherwise, leave it in place for the first 24 hours. If stitches or norma were used, clean the wound daily. After removing the bandage, wash the area with soap and water. Use a wet cotton swab to loosen and remove any blood or crust that forms. The doctor may prescribe an antibiotic cream or ointment to prevent infection. Do not stop taking this medication until you have finished the prescribed course or the doctor tells you to stop. The doctor may also prescribe medications for pain. Follow the doctors instructions for taking these medications. You may remove the bandage to shower as usual after the first 24 hours, but do not soak the area in water (no swimming) until the stitches or norma are removed. If surgical tape was used, keep the area clean and dry. If it becomes wet, blot it dry with a towel. If skin glue was used, do not scratch, rub, or pick at the adhesive film. Do not place tape directly over the film. Do not apply liquid, ointment, or creams to the wound while the film is in place. Do not clean the wound with peroxide and do not apply ointments. Avoid activities that cause heavy sweating until the film has fallen off. Protect the wound from prolonged exposure to sunlight or tanning lamps. You may shower as usual but do not soak the wound in water (no baths or swimming). The film will fall off by itself in 510 days. Scalp wounds During the first two days, you may carefully rinse your hair in the shower to remove blood, glass or dirt particles. After two days, you may shower and shampoo your hair normally. Do not soak your scalp in the tub or go swimming until the stitches or norma have been removed. Talk with your doctor before applying any antibiotic ointment to the wound. Mouth wounds Eat soft foods to reduce pain. If the cut is inside of your mouth, clean by rinsing after each meal and at bedtime with a mixture of equal parts water and hydrogen peroxide (do not swallow!). Or, you can use a cotton swab to directly apply hydrogen peroxide onto the cut. Mouth wounds can be painful when eating. You may use an [id number] local numbing solution for pain relief. If this is not available, you may use any numbing solution for teething babies. You may apply this directly to the sores with a cotton-tip swab or with your finger. Follow-up care Follow up with your health care provider. Most skin wounds heal within ten days. Mouth and facial wounds heal within five days. However, even with proper treatment, a wound infection may sometimes occur. Therefore, you should check the wound daily for signs of infection listed below. Stitches should be removed from the face within five days; stitches and norma should be removed from other parts of the body within 714 days. If dissolving stitches were used in the mouth, these will fall out or dissolve without the need for removal. If tape closures were used, remove them yourself if they have not fallen off after 7 days. Ifskin glue was used, the film will fall off by itself in 510 days. When to seek medical care Get prompt medical attention if any of these occur: Bleeding not controlled by direct pressure Signs of infection, including increasing pain in the wound, increasing wound redness or swelling, or pus coming from the wound Fever of 100.4F (38C) or higher, or as directed by your health care provider Stitches or norma come apart or fall out or surgical tape falls off before 7 days Wound edges re-open Laceration, Extremity (Sutures, Norma, Or Tape) A laceration is a cut through the skin. This will usually require stitches (sutures) or norma if it is deep. Minor cuts may be treated with surgical tape closures. Home care The following guidelines will help you care for your laceration at home: Keep the wound clean and dry. If a bandage was applied and it becomes wet or dirty, replace it. Otherwise, leave it in place for the first 24 hours, then change it once a day or as directed. If stitches or norma were used, clean the wound daily: After removing the bandage, wash the area with soap and water. Use a wet cotton swab to loosen and remove any blood or crust that forms. After cleaning, keep the wound clean and dry. Talk with your doctor before applying any antibiotic ointment to the wound. Reapply the bandage. You may remove the bandage to shower as usual after the first 24 hours, but do not soak the area in water (no swimming) until the stitches or norma are removed. If surgical tape closures were used, keep the area clean and dry. If it becomes wet, blot it dry with a towel. The doctor may prescribe an antibiotic cream or ointment to prevent infection. Do not stop taking this medication until you have finished the prescribed course or the doctor tells you to stop. The doctor may also prescribe medications for pain. Follow the doctors instructions for taking these medications. If you have chronic liver or kidney disease or ever had a stomach ulcer or GI bleeding, talk with your doctor before using these medicines. Follow-up care Follow up with your health care provider. Most skin wounds heal within ten days. However, an infection may sometimes occur despite proper treatment. Therefore, check the wound daily for the signs of infection listed below. Stitches and norma should be removed within 714 days. If surgical tape closures were used, you may remove them after 10 days, if they have not fallen off by then. Notify your doctor if you notice persistent numbness or weakness in the injured extremity. (Note:A radiologist will review any X-rays that were taken. We will notify you of any new findings that may affect your care.) When to seek medical care Get prompt medical attention if any of these occur: Increasing pain in the wound Redness, swelling, or pus coming from the wound Fever of 100.4F (38C) or higher, or as directed by your health care provider If stitches or norma come apart or fall out before your next appointment If the surgical tape closures fall off within seven days, or the wound edges re-open Bleeding not controlled by direct pressure Bandage Change If the bandage becomes wet or dirty, replace it. Otherwise, leave it in place for the first 24 hours. Then once a day: After removing the bandage, wash the area with soap and water. Use a wet cotton swab to loosen and remove any blood or crust that forms on the wound. After cleaning, apply a thin layer of antibiotic ointment or cream. Reapply the bandage. You may shower as usual after the first 24 hours. If the bandage is on an arm or leg, cover it with a plastic bag rubber banded at both ends before showering. No tub baths or swimming until the bandage is removed and the wound healed (at least 7 days). Laceration, Extremity (Sutures, Norma, Or Tape) A laceration is a cut through the skin. This will usually require stitches (sutures) or norma if it is deep. Minor cuts may be treated with surgical tape closures. Home care The following guidelines will help you care for your laceration at home: Keep the wound clean and dry. If a bandage was applied and it becomes wet or dirty, replace it. Otherwise, leave it in place for the first 24 hours, then change it once a day or as directed. If stitches or norma were used, clean the wound daily: After removing the bandage, wash the area with soap and water. Use a wet cotton swab to loosen and remove any blood or crust that forms. After cleaning, keep the wound clean and dry. Talk with your doctor before applying any antibiotic ointment to the wound. Reapply the bandage. You may remove the bandage to shower as usual after the first 24 hours, but do not soak the area in water (no swimming) until the stitches or norma are removed. If surgical tape closures were used, keep the area clean and dry. If it becomes wet, blot it dry with a towel. The doctor may prescribe an antibiotic cream or ointment to prevent infection. Do not stop taking this medication until you have finished the prescribed course or the doctor tells you to stop. The doctor may also prescribe medications for pain. Follow the doctors instructions for taking these medications. If you have chronic liver or kidney disease or ever had a stomach ulcer or GI bleeding, talk with your doctor before using these medicines. Follow-up care Follow up with your health care provider. Most skin wounds heal within ten days. However, an infection may sometimes occur despite proper treatment. Therefore, check the wound daily for the signs of infection listed below. Stitches and norma should be removed within 714 days. If surgical tape closures were used, you may remove them after 10 days, if they have not fallen off by then. Notify your doctor if you notice persistent numbness or weakness in the injured extremity. (Note:A radiologist will review any X-rays that were taken. We will notify you of any new findings that may affect your care.) When to seek medical care Get prompt medical attention if any of these occur: Increasing pain in the wound Redness, swelling, or pus coming from the wound Fever of 100.4F (38C) or higher, or as directed by your health care provider If stitches or norma come apart or fall out before your next appointment If the surgical tape closures fall off within seven days, or the wound edges re-open Bleeding not controlled by direct pressure You have been given the following additional information: Laceration, All Laceration, Extrem (Suture, Staple, Or Tape) Dressing Change Laceration, Extrem (Suture, Staple, Or Tape) Limit use of your right hand until released. (Electronically signed by Timothy Leiva MD 06/28/2016 1:24)
--- NOTE | 2016-06-28 01:24 | ED MAR SUMMARY ---
..... Medication Administration Record [facility] [address] [place] [address] Patient: ESSENCE PATEL Visit ID: [id number] 71y, F Weight: 62.5 kg Height/Length: 67 in BMI: 21.6 ALLERGIES: Penicillins Given 23:22 06/20/2016 Lety Deng Medication Administered: TDAP [IM], Dose: 0.5 mL IM. Medication Ordered: Tdap IM 0.5 mL (NOW, per protocol).
--- NOTE | 2016-06-28 01:24 | ED MED RECONCILIATION SUMMARY ---
Patient: ESSENCE PATEL Medication Reconciliation Report [facility] VisitID: [id number] [address] [place] [place] [address] 71y, F Registration Date/Time: 06/20/2016 Weight: 62.5 kg Height/Length: 67 in. BMI: 21.6 ALLERGIES: Penicillins The patient's Home Medications are listed below: NONE. The source(s) of the original Home Medication information: Not obtained. The following Medications were given to the patient in the Emergency Department: TDAP [IM] IM 0.5 mL, administered: 06/20/2016 11:22:00 PM The following Medications were prescribed to the patient: Acetaminophen (available over the counter): take according to label instructions. -- Timothy Leiva MD
--- NOTE | 2016-06-28 01:24 | ED MED RECONCILIATION SUMMARY ---
Patient: ESSENCE PATEL Medication Reconciliation Report [facility] VisitID: [id number] [address] [place] [address] 71y, F Registration Date/Time: 06/20/2016 Weight: 62.5 kg Height/Length: 67 in. BMI: 21.6 ALLERGIES: Penicillins The patient's Home Medications are listed below: NONE. The source(s) of the original Home Medication information: Not obtained. The following Medications were given to the patient in the Emergency Department: TDAP [IM] IM 0.5 mL, administered: 06/20/2016 11:22:00 PM The following Medications were prescribed to the patient: Acetaminophen (available over the counter): take according to label instructions. -- Timothy Leiva MD
--- NOTE | 2016-06-28 01:24 | ED MAR SUMMARY ---
..... Medication Administration Record [facility] [address] [place] [address] Patient: ESSENCE PATEL Visit ID: [id number] 71y, F Weight: 62.5 kg Height/Length: 67 in BMI: 21.6 ALLERGIES: Penicillins Given 23:22 06/20/2016 Lety Deng Medication Administered: TDAP [IM], Dose: 0.5 mL IM. Medication Ordered: Tdap IM 0.5 mL (NOW, per protocol).
== END 2016-06-20 23:45 | disposition home or self-care (01) ==
LOC: ED SRH 21:08
DX: S61.411A Laceration without foreign body of right hand, initial encounter (principal); W25.XXXA Contact with sharp glass, initial encounter; Y93.9 Activity, unspecified; Y92.019 Unspecified place in single-family (private) house as the place of occurrence of the external cause; Y99.9 Unspecified external cause status; Z23 Encounter for immunization; Z88.0 Allergy status to penicillin